=== PATIENT | female | born 1950 | race Caucasian/White ===

== ENCOUNTER 2019-08-02 13:23 | Emergency (ER) | payer MEDICARE, OTHER ==
[~2019-08-02] VITALS: Ht 162.6 cm; Wt 96.6 kg
[2019-08-02 13:52] LABS: BASOPHILS # (AUTO) 0.1 /CMM (0.0-0.2); BASOPHILS % (AUTO) 1.6 % (0.0-2.0); EOSINOPHILS % (AUTO) 2.8 % (0.0-6.0); HEMATOCRIT 36 % (33-45); HEMOGLOBIN 11.5 g/dL (11.5-14.8); LYMPHOCYTES # (AUTO) 1.1 /CMM (0.8-4.8); LYMPHOCYTES % (AUTO) 30.4 % (20.0-44.0); MEAN CORPUSCULAR HGB CONC 32 g/dl (31.0-36.0); MEAN CORPUSCULAR VOLUME 84 fL (82-100); MONOCYTES # (AUTO) 0.3 /CMM (0.1-1.30); MONOCYTES % (AUTO) 8.7 % (2.0-12.0); NEUTROPHILS % (AUTO) 56.5 % (43.0-81.0); PLATELET COUNT (AUTO) 283 /CMM (150-450); RED BLOOD CELL COUNT(AUTO) 4.22 MIL/uL (4.0-5.2); WHITE BLOOD COUNT (AUTO) 3.5 K/uL (4.3-11.0)
--- NOTE | 2019-08-02 14:00 | NUR ---
TOOK OVER PATIENT CARE. PT [id number]. [id number] and [employer], from a hotel, +[place],-[place], "i want to cut my wrist" PLACED IN BED 14. BELONINGS PLACED IN LOCKER. VSS.
--- NOTE | 2019-08-02 14:01 | NUR ---
pt ambulate to restroom for urine collection
--- NOTE | 2019-08-02 14:04 | NUR ---
URINE COLELCTED AND SENT TO LAB
[2019-08-02 14:08] LABS: BILIRUBIN,URINE Negative (NEGATIVE); BLOOD, URINE Negative Ery/uL (NEGATIVE); COLOR,URINE Yellow (YELLOW); KETONES,URINE Negative (NEGATIVE); LEUKOCYTE ESTERASE ,URINE Small (NEGATIVE); NITRITE, URINE Negative (NEGATIVE); PH,URINE 5.5 (5.0-8.0); PROTEIN,URINE Negative (NEGATIVE); UGLUCOSE Negative (NEGATIVE); UROBILINOGEN,URINE 0.2 EU/dL (0.2)
[2019-08-02 14:09] LABS: APPEARANCE,URINE Slightly Cloudy (CLEAR)
[2019-08-02 14:12] LABS: URINE AMORPHOUS URATE Few /HPF (None Seen)
[2019-08-02 14:17] LABS: CALCIUM, SERUM 8.7 mg/dL (8.5-10.1); CREATININE 0.8 mg/dL (0.6-1.3); POTASSIUM 4.2 mmol/L (3.5-5.1)
[2019-08-02 14:18] LABS: BACTERIA,URINE Rare /HPF (None Seen); SQUAMOUS EPITHELIAL CELL,UR Moderate /HPF (None Seen)
[2019-08-02 14:21] LABS: ALBUMIN 3.1 g/dL (3.4-5.0); BILIRUBIN,DIRECT 0.1 mg/dL (0.0-0.2); BILIRUBIN,TOTAL 0.3 mg/dL (0.2-1.0); SALICYLATE 3.7 mg/dL (2.8-20.0); TOTAL PROTEIN, SERUM 6.7 g/dL (6.4-8.2)
--- NOTE | 2019-08-02 15:05 | NUR ---
CALLED UNIT MANAGER RN DOROTA LEFT VOICEMAIL.
--- NOTE | 2019-08-02 15:06 | NUR ---
Patient is resting comfortably in bed. Easily aroused. VSS. head loft worker at bedside.
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
--- NOTE | 2019-08-02 15:32 | NUR ---
RECEIVED CALL FROM ART REGARDING EVAL OF THIS PATIENT
--- NOTE | 2019-08-02 17:00 | NUR ---
TRANSFER INFO: PT WILL GO TO [facility], ACCEPTED BY DR MÉNDEZ. RN FOR REPORT [phone], TO [address] BLS ETA 5950 TRIP#[id number]
--- NOTE | 2019-08-02 17:07 | NUR ---
KANWAL LAMS ETA 2639 TRIP#[id number]
--- NOTE | 2019-08-02 17:16 | NUR ---
CALLED [facility]NELLY. ETA 40-50 MINUTES. CREW TRANSPORTING A PT TO [facility] WILL BE PICKING UP PT AFTER DONE WITH CALL.
--- NOTE | 2019-08-02 17:21 | NUR ---
REPORT GIVEN TO CHANO FOR [facility].
[2019-08-02 17:22] VITALS: BP 143/67
--- NOTE | 2019-08-02 18:39 | NUR ---
REPORT GIVEN TO SWATI.
== END 2019-08-02 18:45 ==
LOC: ER 13:25
DX: R45.851 Suicidal ideations (principal); J44.9 Chronic obstructive pulmonary disease, unspecified; F32.9 Major depressive disorder, single episode, unspecified; F41.9 Anxiety disorder, unspecified
CPT/HCPCS: 36415; 80048; 80076; 80305; 80307; 80329; 81001; 85025; 99285; G0480; 81000-TC